=== PATIENT | male | born 1975 | race Caucasian/White ===

== ENCOUNTER 2019-02-11 15:58 | Inpatient (IN) ==
[2019-02-11] MEDS ORDERED: ONDANSETRON 4 MG/2 ML VIAL IVP ONE (16:17)
[2019-02-11] MEDS ORDERED: Sodium Chloride 0.9% 1,000 ML PRIMARY IV ONE (16:17)
[2019-02-11] MEDS ORDERED: FAMOTIDINE 20 MG/2 ML VIAL IVP ONE (16:17)
[2019-02-11] MEDS ORDERED: MORPHINE SULFATE 4 MG/1 ML IVP ONE ×2 (16:17→17:19)
[2019-02-11 16:56] LABS: BASOPHILS # (AUTO) 0.03 10*3/UL; BASOPHILS % (AUTO) 0.3 % (0-1); EOSINOPHILS # (AUTO) 0 10*3/UL; EOSINOPHILS % (AUTO) 0 % (0-8); Hematocrit [HCT] 43.8 % (42.0-52.0); Hemoglobin [HGB] 15.9 g/dL (14.0-18.0); LYMPHOCYTES # (AUTO) 1.08 10*3/uL; MEAN CORPUSCULAR HEMOGLOBIN 35.1 PG (27-31); MEAN CORPUSCULAR HGB CONC 36.3 g/dL (33-37); MEAN CORPUSCULAR VOLUME 96.7 FL (80-90); MONOCYTES # (AUTO) 0.54 10*3/UL (0.3-0.8); MONOCYTES % (AUTO) 5.3 % (5-15); NEUTROPHILS # (AUTO) 8.57 10*3/UL; NEUTROPHILS % (AUTO) 83.6 % (50-80); RED BLOOD COUNT 4.53 10^6/uL (4.70-6.10)
[2019-02-11 16:59] LABS: PLATELET MORPHOLOGY COMMENT NORMAL MORPHOLOGY (NORM); RBC MORPHOLOGY COMMENT NORMAL MORPHOLOGY (NORM); WBC MORPHOLOGY COMMENT NORMAL MORPHOLOGY (NORM)
[2019-02-11 17:13] LABS: BLOOD UREA NITROGEN 7 mg/dL (7-22); SERUM ALBUMIN 4.3 g/dL (3.5-4.8)
[2019-02-11 17:26] LABS: LIPASE 2874 IU/L (23-300)
--- NOTE | 2019-02-11 18:20 | DI ---
CT ABDOMEN SCAN WITH IV CONTRAST, 02/11/2019 4:18 PM : Clinical History: Abdominal pain. Previous Exam: None at this facility. IV Contrast: 70 mL of Ultravist 370. Oral Contrast: No oral contrast ordered. Rectal Contrast: No rectal contrast ordered. Lungs: No infiltrate or effusion. Atelectasis in the inferior lingular segment. Liver: Normal. Gallbladder: Grossly normal. Common bile duct measures 5 mm. Adrenal Glands: Low density lesions in both adrenal glands but greater than fat density. The right in ternal gland measures 30 x 30 x 20 mm in the left adrenal gland measures 25 x 25 x 15 mm. Spleen: Normal. Pancreas: Normal size but surrounded by inflammatory/infiltrative change primarily anteriorly. The pa ncreatic duct is not dilated. No pancreatic calcifications or pseudocysts are identified. Kidneys: Normal size, shape, position and contour. No hydronephrosis or hydroureter. Small nonobstruc ting 2 mm calculus in a lower pole calyx of the right kidney. No right ureteral calculus. No left raymon al or ureteral calculi. Masses: None. Lymph Nodes: Normal. Ascites: No ascites. Free Air: None. Spine: Normal lower thoracic spine. Old compression fracture of L1 with loss of height less than 25%. Additional Findings: There are scattered calcifications throughout the abdominal aorta and in both co mmon iliac arteries in this 43-year-old patient. Possibility of diabetes, hyperlipidemia, or other me tabolic abnormality is raised. READIN. Findings consistent with acute pancreatitis. No pancreatic duct dilatation or evidence of pancrea tic calcifications or pseudocyst. The common bile duct measures 5 mm. 2. Nonobstructing 2 mm lower pole right renal calculus without ureteral calculus. The left kidney an d ureter are normal. 3. Calcifications in the aorta and common iliac arteries in a 43-year-old patient raising the possib ility of diabetes, hyperlipidemia, or other metabolic disorder. CT PELVIS SCAN WITH IV CONTRAST, 02/11/2019 4:18 PM: Clinical History: See above. Previous Exam: None at this facility. Contrast: Same bolus used for CT scans of the abdomen. Masses: No masses or enhancing lesions. Ascites: None. Free Air: None. Lymph Nodes: No adenopathy. Appendix: Normal. Small Bowel: Normal small bowel, terminal ileum, and ileocecal valve. Colon: Normal. Bladder: Normal. Hernias: None. Bony Pelvis: Normal sacrum, pelvic bones, and hips. READING: Normal CT scan of the pelvis with IV contrast.
[2019-02-11] MEDS: Sodium Chloride 0.9% 1,000 ML PRIMARY IV SCH (19:54)
[2019-02-11] MEDS: HYDROmorphone 2 MG/1 ML IVP PRN ×2 (19:54→21:50)
[2019-02-11 20:51] LABS: BILIRUBIN,URINE SMALL (NEG); CLARITY,URINE CLEAR (CLEAR); COLOR,URINE YELLOW (Y); GLUCOSE, URINE (UA) NEGATIVE (NEG); OCCULT BLOOD,URINE SMALL (NEG); PROTEIN,URINE 100 mg/dl (NEG)
[2019-02-11 20:52] LABS: URINE SAMPLE TYPE VOIDED SPECIMEN
[2019-02-11 20:55] LABS: SQUAMOUS EPITHELIAL CELL,UR RARE
[2019-02-11 20:57] LABS: URINE SAMPLE TYPE VOIDED SPECIMEN
[2019-02-11 20:59] LABS: AMPHETAMINE SCREEN NEGATIVE (NEG); CANNABINOID SCREEN,URINE POSITIVE (NEG); COCAINE SCREEN NEGATIVE (NEG); METHADONE URINE SCREEN NEGATIVE (NEG); METHAMPHETAMINES SCREEN,URINE NEGATIVE (NEG); OPIATE SCREEN,URINE NEGATIVE (NEG)
--- NOTE | 2019-02-11 21:09 | PDOC ---
HPI - History of Present Illness History of Present Illness: This very nice 43-year-old gentleman with past medical history of alcoholism he is very vague and I'm sure about his drinking habits and is not telling me he didn't score on the depression scale but he does not want to talk about it and he does not want us to call [facility] he is not suicidal or homicidal he did have a few beers yesterday but that does not remember how many comes in today when with acute abdominal pain consistent with pancreatitis patient will be admitted for this diagnosis Past Medical History Medical History: Alcoholism, previous pancreatitis Tobacco Use: Current Every Day Smoker In the Past 12 Months, Have Used or Abuse Any of the Following Substance: None Medication / Allergies Home Medications: Home Medications Medication Instructions Recorded Confirmed NK 02/11/19 02/11/19 Allergies/Adverse Reactions: Allergies Allergy/AdvReac Type Severity Reaction Status Date / Time No Known Allergies Allergy Verified 02/11/19 16:23 Review of Systems - Review of Systems All Systems: Reviewed & No Additional Complaints Except as Stated - Cardiovascular Cardiovascular: DENIES: Negative System Review, Chest Pain, Edema, Syncope, Palpitations, Orthopnea, Paroxysmal Nocturnal Dyspnea, Other, See HPI - Gastrointestinal Gastrointestinal / Abdominal: REPORTS: Abdominal Pain. DENIES: Negative System Review, Nausea, Vomiting, Diarrhea, Constipation, Bloody Stool, Poor Appetite, Heartburn, Regurgitation, Bloating, Lactose Intolerance, Melena, Bright Red Blood per Rectum, Other, See HPI Exam - Vitals Vital Signs: Vital Signs Temperature 96.6 F Temperature Source Temporal Artery Scan Pulse Rate [Pulse Oximeter 75 Right] Pulse Rate 86 Respiratory Rate 20 Blood Pressure [Left Arm] 147/95 Blood Pressure 146/99 Pulse Ox 94 Oxygen Delivery Method Room Air Height 5 ft 11 in Weight 136 lb - General General Appearance: No Acute Distress, Cooperative - Head Head Exam: Normal Inspection, Normocephalic, Atraumatic - Eye Eye Exam: POSITIVE: Normal Appearance, PERRL, EOMI, No Scleral Icterus - Neck Neck Exam: Normal Inspection, Full ROM, No Tenderness, No Lymphadenopathy, No Thyromegaly, JVP is not Raised - Respiratory Respiratory Exam: POSITIVE: Clear to Auscultation - Bilaterally, Breathing Non Labored, Normal To Percussion, Normal to Percussion and Palpation - Cardiovascular Cardiovascular Exam: POSITIVE: RRR, No Murmur, No Clicks, No Gallops, No Rubs, PMI Non-Displaced - GI/Abdominal Additional GI/Abdominal Exam Details: Mild left upper quadrant pain no guarding or rebound Results - Labs CBC and BMP: 02/11/19 16:49 02/11/19 16:17 Assessment and Plan - Patient Problems (1) Pancreatitis Current Visit: Yes Status: Acute Comment: IV fluids lactated Ringer's at 125 an hour, Tylenol for pain control and by mouth repeat labs in a.m. Code(s): K85.90 - Acute pancreatitis without necrosis or infection, unspecified
[2019-02-11] MEDS: NICOTINE 21 MG /DAY PATCH TRANSDERM SCH (22:48)
[2019-02-11] MEDS: LORazepam Inj(ETOH withdrawal) 2 MG/ML VIAL IVP PRN (22:48)
[2019-02-12] MEDS: HYDROmorphone 2 MG/1 ML IVP PRN ×7 (03:00→20:10)
[2019-02-12] MEDS: Sodium Chloride 0.9% 1,000 ML PRIMARY IV SCH ×2 (04:32→16:35)
[2019-02-12 04:53] LABS: BASOPHILS # (AUTO) 0.05 10*3/UL; BASOPHILS % (AUTO) 0.4 % (0-1); EOSINOPHILS # (AUTO) 0.14 10*3/UL; Hematocrit [HCT] 43.7 % (42.0-52.0); LYMPHOCYTES # (AUTO) 1.79 10*3/uL; MEAN CORPUSCULAR HEMOGLOBIN 34.3 PG (27-31); MEAN CORPUSCULAR HGB CONC 34.3 g/dL (33-37); MEAN PLATELET VOLUME 9.2 FL (7.4-12.2); MONOCYTES # (AUTO) 1.34 10*3/UL (0.3-0.8); MONOCYTES % (AUTO) 9.6 % (5-15); NEUTROPHILS # (AUTO) 10.66 10*3/UL; NEUTROPHILS % (AUTO) 75.9 % (50-80); RED BLOOD COUNT 4.37 10^6/uL (4.70-6.10)
[2019-02-12 05:00] LABS: PLATELET MORPHOLOGY COMMENT NORMAL MORPHOLOGY (NORM); RBC MORPHOLOGY COMMENT NORMAL MORPHOLOGY (NORM); WBC MORPHOLOGY COMMENT NORMAL MORPHOLOGY (NORM)
[2019-02-12 05:18] LABS: BLOOD UREA NITROGEN 6 mg/dL (7-22); SERUM ALBUMIN 3.4 g/dL (3.5-4.8)
[2019-02-12 05:25] LABS: LIPASE 4214 IU/L (23-300)
--- NOTE | 2019-02-12 07:11 | PDOC ---
Abdomen/Flank HPI - General Chief Complaint: Abdomen Pain Stated Complaint: ABDOMINAL PAIN/NV Date Seen by Provider: 02/11/19 Time Seen by Provider: 16:10 Source: POSITIVE: Patient Exam Limitations: POSITIVE: No limitations Nurse's Notes Reviewed & Considered: Yes - History of Present Illness Initial Comments: The patientis a 43-year-old male. Approximately 8 hours ago he developed upper abdominal pain and vomiting. His pain is located in the epigastrium and just right of the epigastrium. Patient does not have any history of abdominal surgery. No fevers. No melena, hematochezia, hematemesis, dysuria or hematuria. Patient states he has a history of pancreatitis. Patient states that he was a heavy user of alcohol. He states he had a couple of beers last night. Body Location Affected: REPORTS: Abdomen Timing: REPORTS: Constant, Getting Worse Duration: <24 hours Severity: Moderate Quality: REPORTS: Aching, Tenderness Abdominal Pain Onset Location: REPORTS: RUQ, Epigastric Abdominal Pain Radiation: REPORTS: No radiation Context: REPORTS: None Modifying Factors: improves with: Nothing Associated Symptoms: REPORTS: Vomiting Similar Symptoms Previously: Yes Recent Care Received: REPORTS: Denies Any Prior Injuries Related to Current Complaint?: No - Patient Home Medications Home Medications: Home Medications NK 02/11/19 - Patient Allergies Allergies/Adverse Reactions: Allergies Allergy/AdvReac Type Severity Reaction Status Date / Time No Known Allergies Allergy Verified 02/11/19 16:23 Past Medical History - heen HEENT History: Denies History Cardiovascular History: Denies History Respiratory History: Denies History Gastrointestinal History: Pancreatitis Genitourinary History: Denies History Endocrine History: Denies History Musculoskeletal History: Denies History Neurological History: Denies History Blood Disorders: Denies History Psychiatric History: Substance Abuse Additional Psychiatric History: ETOH History of Sexually Transmitted Diseases: No Male Reproductive History: Denies History Cancer History: Denies History In Past Year Been Physically Harmed or Verbally Threatened: No History of MDRO: No History of Other Communicable Diseases: No Tobacco Use: Current Every Day Smoker Type of alcohol normally used: Beer In the Past 12 Months, Have Used or Abuse Any Substance: None Previous Surgical History: Yes Type / Date of Surgery: ORIF LEFT TIB/FIB Significant Family History: No pertinent family hx Past Medical History Reviewed: Reviewed - No Changes ROS - Limitations ROS Limitations: No Limitations Constitution: REPORTS: Denies Symptoms Cardiovascular: REPORTS: Denies Cardiac Symptoms Respiratory: REPORTS: Denies Resp Symptoms Neurological: REPORTS: Denies Neuro Symptoms Gastrointestinal: REPORTS: Abdominal Pain, Nausea, Vomitting Endocrine: REPORTS: Denies Symptoms Musculoskeletal: REPORTS: Denies MS Symptoms Genitourinary: REPORTS: Denies Symptoms Eyes: REPORTS: Denies Symptoms ENT: REPORTS: Denies Symptoms Skin: REPORTS: Denies Skin Symptoms Lympathic: REPORTS: Denies Lympathic Symptoms Immunologic: POSITIVE: Denies Symptoms Psychiatric: POSITIVE: Denies Psych Symptoms Abdominal/Flank Pain PE - General Appearance General Appearance: POSITIVE: Alert, Cooperative, No Acute Distress, No Evidence of Trauma - HEENT HEENT: POSITIVE: Head Inspection Nml, Eyes Inspection Nml, Ears Inspection Nml, Nose Inspection Nml, Oral/Dental Inspect. Nml, Pharynx Inspect. Nml, PERRL, EOMI - Neck Neck: POSITIVE: Normal Inspection, No Apparent Injury - Respiratory Respiratory: POSITIVE: No Respiratory Distress, Breath Sounds Normal, Chest Non- Tender - Cardiovascular Cardiovascular: POSITIVE: Regular Rate and Rhythm, Heart Sounds Normal, Equal Pulses, Strong Pulses Peripheral Pulses: Radial (R): 2+, Radial (L): 2+ - Chest Chest: POSITIVE: Non Tender - Abdomen Abdomen: Soft: (All Quadrants), Normal Bowel Sounds: (All Quadrants), Denies Tenderness: (LLQ), (RLQ), No Splenomegaly: (All Quadrants), No Hepatomegaly: (All Quadrants), No Guarding: (LLQ), (RLQ), (LUQ), No Rebound: (All Quadrants), No Palpable Pulse: (All Quadrants), No Palpabale Mass: (All Quadrants), No Diste ntion: (All Quadrants), No Rigidity: (All Quadrants), Tenderness Noted: (RUQ), (LUQ) Additional Abdominal Details: Abdominal examination shows bowel sounds be present. Depressed. Patient has pain on palpation over the right upper quadrant, especially just right of the ep igastrium. Some guarding. No masses, organomegaly or rebound. - Back Back: POSITIVE: Normal Inspection. 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 Lab Results Reviewed by Me: Yes (lipase 2874, amylase 258) CBC and BMP: 02/12/19 04:14 02/12/19 04:14 Lab Results:: Laboratory Results 02/11/19 02/11/19 02/11/19 16:17 16:49 16:49 WBC 10.25 RBC 4.53 L Hgb 15.9 Hct 43.8 MCV 96.7 H MCH 35.1 H MCHC 36.3 RDW Std Deviation 43.3 RDW Coeff of [place] 12.4 Plt Count 342 MPV 9.0 Immature Gran % (Auto) 0.3 Neut % (Auto) 83.6 H Lymph % (Auto) 10.5 [place] % (Auto) 5.3 Eos % (Auto) 0 Baso % (Auto) 0.3 Immature Gran # (Auto) 0.03 Neut # (Auto) 8.57 Lymph # (Auto) 1.08 [place] # (Auto) 0.54 Eos # (Auto) 0 Baso # (Auto) 0.03 WBC Morphology Comment Normal morphology Plt Morphology Comment Normal morphology RBC Morph Comment Normal morphology Sodium 136 Potassium 4.2 Chloride 95 L Carbon Dioxide 24 Anion Gap 17 BUN 7 Creatinine 0.7 Estimated GFR > 60 BUN/Creatinine Ratio 10.00 Glucose 113 H Calculated Osmolality 280.0 Calcium 10.0 Total Bilirubin 0.9 AST 64 H ALT 40 Alkaline Phosphatase 128 H Total Protein 6.8 Albumin 4.3 Globulin 2.5 Albumin/Globulin Ratio 1.70 Amylase 258 H Lipase 2874 H* Serum Alcohol < 10 - Patient's Progress Pain Medication Addressed: POSITIVE: Yes (Patient medicated with Dilaudid and received a liter of normal saline. Zofran IV. With improvement.) School/Work Release Addressed: POSITIVE: Not Applicable Re-examine Time: 18:20 Re-Examine Comment: Patient feeling some better. Patient advised that he is having acute pancreatitis. Case discussed with hospitalist on-call, , and patient admitted by Dr. Workman for further evaluation and treatment. Status: POSITIVE: Improved, Re-Examined - Consult Consult (If Yes, Name of Consulting MD & Time Called): Yes (, hospitalist [id number], ) Consulting MD will see pt:: POSITIVE[place] [facility] [place] Counseled: POSITIVE: Patient Patient Care Time - Estimated PCT Patient Care Time (In Minutes): 50 Vital Signs - VS Reviewed Vital Signs Reviewed: Yes Discharge Clinical Impression: Pancreatitis Discharge Disposition: Admit to Inpatient Condition: Fair Patient Problem(s) Reviewed: Yes Date Decision to Admit to Inpatient: 02/11/19 Time Decision to Admit to Inpatient: 18:10
[2019-02-12] MEDS ORDERED: NICOTINE 21 MG /DAY PATCH TRANSDERM SCH (09:00)
[2019-02-12] MEDS: NICOTINE 21 MG /DAY PATCH TRANSDERM SCH (09:06)
[2019-02-12] MEDS: REMOVAL NICOTINE TRANSDERM SCH (09:07)
--- NOTE | 2019-02-12 09:57 | PDOC(PROG) ---
Date of Service: 02/12/19 Time of Service: 10:00 Interval History: Subjective Patient came into the hospital with history of abdominal pain and vomiting. The pain felt all over the abdomen and did feel it also on his back. He Said he had previous history of pancreatitis about 3 times and ended up in a hospital twice. He said he drinks like 3 beers a night. Objective : Data - Labs CBC and BMP: 02/12/19 04:14 02/12/19 04:14 Objective : Exam - General General Appearance: No Acute Distress, Cooperative, Thin - Head Head Exam: Normal Inspection - Eye Eye Exam: Normal Appearance - ENT ENT Exam: Normal Exam - Neck Neck Exam: Normal Inspection - Respiratory Respiratory Exam: Clear to Auscultation - Bilaterally - Cardiovascular Cardiovascular Exam: RRR - GI/Abdominal GI/Abdominal Exam: Normal Bowel Sounds, Non Tender, Non Distended, Soft, No Organomegaly - Rectal Rectal Exam: Deferred - External Exam: Deferred - Extremities Extremities Exam: Normal Inspection - Back Back Exam: Normal Inspection - Neurological Neurological Exam: Alert, Oriented x 3, CN II-XII Intact, No Facial Droop, Speech Intact / Clear - Psychiatric Psychiatric Exam: Normal Affect - Integumentary Integumentary Exam: Normal Color Assessment and Plan - Patient Problems (1) Pancreatitis Current Visit: Yes Status: Acute Comment: Probably secondary to alcohol. His lipase is still elevated , continued to complain from pain and received some IV Dilaudid earlier. I think will keep him on ice chips for another night. Continue IV fluid pain medication repeat his labs tomorrow and then will decide if he is ready for trial of clear liquid. Code(s): K85.90 - Acute pancreatitis without necrosis or infection, unspecified (2) Alcoholism Current Visit: Yes Status: Acute Comment: Continue as needed [facility] alcohol protocol. he is complaining from difficulty with sleep last night we'll put him on some trazodone. Code(s): F10.20 - Alcohol dependence, uncomplicated
[2019-02-12] MEDS ORDERED: traZODone Tab 50 MG TAB PO SCH (21:00)
[2019-02-13] MEDS: HYDROmorphone 2 MG/1 ML IVP PRN ×4 (00:07→11:57)
[2019-02-13] MEDS: LORazepam Inj(ETOH withdrawal) 2 MG/ML VIAL IVP PRN (04:40)
[2019-02-13 06:22] LABS: BASOPHILS # (AUTO) 0.03 10*3/UL; BASOPHILS % (AUTO) 0.3 % (0-1); EOSINOPHILS # (AUTO) 0.24 10*3/UL; EOSINOPHILS % (AUTO) 2.3 % (0-8); Hematocrit [HCT] 44.5 % (42.0-52.0); Hemoglobin [HGB] 14.5 g/dL (14.0-18.0); LYMPHOCYTES # (AUTO) 2.01 10*3/uL; MEAN CORPUSCULAR HEMOGLOBIN 33.9 PG (27-31); MEAN CORPUSCULAR HGB CONC 32.6 g/dL (33-37); MEAN PLATELET VOLUME 9.4 FL (7.4-12.2); MONOCYTES # (AUTO) 1.12 10*3/UL (0.3-0.8); MONOCYTES % (AUTO) 10.7 % (5-15); NEUTROPHILS # (AUTO) 7.06 10*3/UL; NEUTROPHILS % (AUTO) 67.2 % (50-80); RED BLOOD COUNT 4.28 10^6/uL (4.70-6.10)
[2019-02-13 06:28] LABS: PLATELET MORPHOLOGY COMMENT NORMAL MORPHOLOGY (NORM); RBC MORPHOLOGY COMMENT NORMAL MORPHOLOGY (NORM); WBC MORPHOLOGY COMMENT NORMAL MORPHOLOGY (NORM)
[2019-02-13 06:30] LABS: BLOOD UREA NITROGEN 5 mg/dL (7-22); SERUM ALBUMIN 3.4 g/dL (3.5-4.8)
[2019-02-13 06:57] LABS: LIPASE 1861 IU/L (23-300)
[2019-02-13 08:11] VITALS: TEMP 98.1
[2019-02-13] MEDS: REMOVAL NICOTINE TRANSDERM SCH (08:52)
[2019-02-13] MEDS: NICOTINE 21 MG /DAY PATCH TRANSDERM SCH (08:52)
[2019-02-13 12:18] VITALS: BP 115/87; RESP 16; O2SAT 92
--- NOTE | 2019-02-13 13:57 | DCSUMMARY ---
Hospitalization Summary Admit Date: 02/11/2019 Discharge Date: 02/13/19 Hospital Course: Discharge diagnoses 1. Acute alcohol pancreatitis 2. Alcoholism Hospital course This is a 43 years old male with past medical history significant for history of previous pancreatitis who presented to the hospital with history of abdominal pain and vomiting evaluation in the ER revealed pancreatitis and hence the admission. Patient was admitted to the hospital by Dr. Workman please see his note. Patient was put on IV fluids, pain medication and anti-emetics. He was put also on CIWA scale he did not require much. I saw him the next day with continued with the same treatment with the IV fluid, pain medication. His lipase was more elevated the next day of admission so we kept only on ice chips. On the day of discharge he was feeling better he said his pain is a improved his lipase did go down to 1800 from 4200 previous day. I did tell him I wanted him to stay another night and was thinking of putting him on clear liquids and then advance as tolerated also I wanted to see his lipase come down further, however he was adamant about leaving the hospital. we did try him on a clear liquid diet and he tolerated that with no worsening pain or vomiting. His exam was unremarkable there was no tenderness in his abdomen so we decided to discharge him home based on his request. We did put on Prilosec in case of gastritis, he requested something for sleep we put him on trazodone. He need follow-up with his primary. Did discuss with him the fact that he need to quit drinking altogether. He did express understanding. Discharge instructions Diet clear liquid advance as tolerated Medications Home Medications Acetaminophen [Tylenol] 650 mg PO QID #10 tablet. 02/13/19 [Rx] Omeprazole [PriLOSEC] 20 mg PO DAILY #14 capsule. 02/13/19 [Rx] traZODone Tab [Desyrel Tab] 50 mg PO BEDTIME #10 tab 02/13/19 [Rx] Follow-up with PCP in 1-2 weeks Condition at discharge was stable for discharge Exam - Vitals Vital Signs: Vital Signs Temperature 98.1 F Temperature Source Temporal Artery Scan Pulse Rate [Pulse Oximeter 96 Right] Pulse Rate 87 Respiratory Rate 16 Blood Pressure [Right Arm] 115/87 Blood Pressure [Left Arm] 140/84 Blood Pressure 140/84 Pulse Ox 92 Oxygen Delivery Method Room Air Height 5 ft 11 in Weight 139 lb 9.6 oz - General General Appearance: No Acute Distress, Cooperative, Thin - Head Head Exam: Normal Inspection - Eye Eye Exam: POSITIVE: Normal Appearance - ENT ENT Exam: POSITIVE: Normal Exam - Neck Neck Exam: Normal Inspection - Respiratory Respiratory Exam: POSITIVE: Clear to Auscultation - Bilaterally - Cardiovascular Cardiovascular Exam: POSITIVE: RRR - GI/Abdominal GI/Abdominal Exam: POSITIVE: Normal Bowel Sounds, Non Tender, Non Distended, Soft, No Organomegaly - Rectal Rectal Exam: POSITIVE: Deferred - External Exam: POSITIVE: Deferred - Extremities Extremities Exam: POSITIVE: Normal Inspection - Back Back Exam: POSITIVE: Normal Inspection - Neurological Neurological Exam: POSITIVE: Alert, Oriented x 3, CN II-XII Intact, No Facial Droop, Speech Intact / Clear, Moves All Extremities Equally - Psychiatric Psychiatric Exam: POSITIVE: Normal Affect - Integumentary Integumentary Exam: POSITIVE: Normal Color Patient Problems - Patient Problem List (1) Pancreatitis Status: Acute Code(s): K85.90 - Acute pancreatitis without necrosis or infection, unspecified Category: Medical (2) Alcoholism Status: Acute Code(s): F10.20 - Alcohol dependence, uncomplicated Category: Medical
== END 2019-02-13 14:09 | disposition home or self-care (01) | DRG 440 ==
LOC: ER 15:58 → MED/SURG 18:58
PROVIDERS: ADMIT Internal Medicine; ATTEND Internal Medicine